=== PATIENT | female | born 1960 | race Caucasian/White ===

== ENCOUNTER 2024-06-19 15:06 | Inpatient (IN) | payer BC ==
[2024-06-19 16:25] LABS: BASOPHILS ABSOLUTE AUTO 0.1 K/mm3 (0.0-0.2); BASOPHILS PERCENT AUTO 0.3 % (0.0-1.0); EOSINOPHILS ABSOLUTE AUTO 0.1 K/mm3 (0.0-0.4); EOSINOPHILS PERCENT AUTO 0.5 % (0.0-6.0); HEMATOCRIT 34.5 % (37.0-47.0); HEMOGLOBIN 10.9 gm/dl (12.0-16.0); IMMATURE GRAN ABSOLUTE AUTO 0.44 K/mm3 (0.00-0.05); IMMATURE GRAN PERCENT AUTO 2.5 % (0.0-0.4); LYMPHOCYTES ABSOLUTE AUTO 1.9 K/mm3 (1.0-4.8); LYMPHOCYTES PERCENT AUTO 10.7 % (24.0-44.0); MEAN CORPUSCULAR HEMOGLOBIN 29.3 pg (28.0-32.0); MEAN CORPUSCULAR HGB CONC 31.6 g/dl (32.0-36.0); MEAN CORPUSCULAR VOLUME 92.7 fl (83.0-99.0); MEAN PLATELET VOLUME 11.1 fl (9.4-12.3); MONOCYTES ABSOLUTE AUTO 0.8 K/mm3 (0.0-0.8); MONOCYTES PERCENT AUTO 4.5 % (0.0-8.0); NEUTROPHILS ABSOLUTE AUTO 14.4 K/mm3 (1.8-7.7); NEUTROPHILS PERCENT AUTO 81.5 % (41.0-71.0); PLATELET COUNT,PLT 375 K/mm3 (150-400); RED BLOOD CELL COUNT 3.72 M/mm3 (4.10-5.30); WHITE BLOOD CELL COUNT,WBC 17.64 K/mm3 (3.9-11.3)
[2024-06-19 17:05] LABS: A/G RATIO 0.3 (1-2); ALBUMIN 2.1 g/dl (3.4-5.0); ANION GAP 10.8 (5-15); BILIRUBIN TOTAL 0.7 mg/dL (0.2-1.0); BUN/CREATININE RATIO 17.5 (14-18); CALCIUM 8.5 mg/dL (8.5-10.1); CREATININE 0.8 mg/dL (0.55-1.02); EST CRCL DRUG DOSING (CG) 61.35 mL/min; POTASSIUM,K 3.8 mEq/L (3.5-5.1); PROTEIN TOTAL,TP 9.5 g/dl (6.4-8.2)
[2024-06-19] MEDS ORDERED: Ondansetron 4 MG Tab.DIS PO PRN (17:49)
[2024-06-19] MEDS: Sodium Chloride 0.9% 10 ML Syringe FLUSH PRN (18:22)
[2024-06-19] MEDS: ceFAZolin 2 GM in Sodium Chloride 0.9% 50 ML IV SCH (18:22)
[2024-06-19] MEDS: Acetaminophen 325 MG Tab PO PRN (18:23)
[2024-06-19] MEDS: Sodium Chloride 0.9% 1,000 ML IV SCH (20:55)
[2024-06-20 06:10] LABS: BASOPHILS PERCENT AUTO 0.1 % (0.0-1.0); EOSINOPHILS ABSOLUTE AUTO 0.2 K/mm3 (0.0-0.4); HEMATOCRIT 27.9 % (37.0-47.0); IMMATURE GRAN ABSOLUTE AUTO 0.28 K/mm3 (0.00-0.05); IMMATURE GRAN PERCENT AUTO 1.9 % (0.0-0.4); LYMPHOCYTES PERCENT AUTO 13.8 % (24.0-44.0); MEAN CORPUSCULAR HEMOGLOBIN 29.5 pg (28.0-32.0); MEAN CORPUSCULAR HGB CONC 31.9 g/dl (32.0-36.0); MEAN CORPUSCULAR VOLUME 92.4 fl (83.0-99.0); MONOCYTES ABSOLUTE AUTO 0.9 K/mm3 (0.0-0.8); MONOCYTES PERCENT AUTO 6.1 % (0.0-8.0); NEUTROPHILS ABSOLUTE AUTO 11.2 K/mm3 (1.8-7.7); NEUTROPHILS PERCENT AUTO 77.1 % (41.0-71.0); RED BLOOD CELL COUNT 3.02 M/mm3 (4.10-5.30); WHITE BLOOD CELL COUNT,WBC 14.52 K/mm3 (3.9-11.3)
[2024-06-20 06:13] LABS: HEMOGLOBIN 8.9 gm/dl (12.0-16.0); PLATELET COUNT,PLT 297 K/mm3 (150-400)
[2024-06-20 06:30] LABS: A/G RATIO 0.3 (1-2); ALBUMIN 1.5 g/dl (3.4-5.0); ANION GAP 10.7 (5-15); BILIRUBIN TOTAL 0.5 mg/dL (0.2-1.0); BUN/CREATININE RATIO 14.3 (14-18); C-REACTIVE PROTEIN 8.72 mg/dL (<0.30); CALCIUM 7.6 mg/dL (8.5-10.1); CREATININE 0.7 mg/dL (0.55-1.02); EST CRCL DRUG DOSING (CG) 70.11 mL/min; POTASSIUM,K 3.7 mEq/L (3.5-5.1); PROTEIN TOTAL,TP 7.5 g/dl (6.4-8.2)
[2024-06-20] MEDS: Enoxaparin 40 MG/0.4 ML Syringe SUBCUT SCH (08:07)
[2024-06-20] MEDS ORDERED: FLU (Flulaval Triv) 24-25(6MOS UP)/PF 45 MCG/0.5 ML Syringe IM ONE (10:00)
[2024-06-20] MEDS: Diltiazem 240 MG Cap.ER PO SCH (12:56)
[2024-06-20] MEDS: Aspirin 81 MG Tab.EC PO SCH (12:56)
[2024-06-20] MEDS: Pravastatin 20 MG Tab PO SCH (21:02)
[2024-06-20] MEDS: Amitriptyline 10 MG Tab PO SCH (21:02)
[2024-06-21 05:38] LABS: BASOPHILS PERCENT AUTO 0.3 % (0.0-1.0); EOSINOPHILS ABSOLUTE AUTO 0.3 K/mm3 (0.0-0.4); HEMATOCRIT 29.3 % (37.0-47.0); HEMOGLOBIN 9.2 gm/dl (12.0-16.0); IMMATURE GRAN PERCENT AUTO 2.2 % (0.0-0.4); LYMPHOCYTES ABSOLUTE AUTO 2.2 K/mm3 (1.0-4.8); LYMPHOCYTES PERCENT AUTO 16.4 % (24.0-44.0); MEAN CORPUSCULAR HEMOGLOBIN 29.4 pg (28.0-32.0); MEAN CORPUSCULAR HGB CONC 31.4 g/dl (32.0-36.0); MEAN CORPUSCULAR VOLUME 93.6 fl (83.0-99.0); MEAN PLATELET VOLUME 11.7 fl (9.4-12.3); MONOCYTES ABSOLUTE AUTO 0.9 K/mm3 (0.0-0.8); MONOCYTES PERCENT AUTO 6.2 % (0.0-8.0); NEUTROPHILS ABSOLUTE AUTO 9.9 K/mm3 (1.8-7.7); NEUTROPHILS PERCENT AUTO 72.9 % (41.0-71.0); PLATELET COUNT,PLT 262 K/mm3 (150-400); RED BLOOD CELL COUNT 3.13 M/mm3 (4.10-5.30); WHITE BLOOD CELL COUNT,WBC 13.62 K/mm3 (3.9-11.3)
[2024-06-21 05:58] LABS: A/G RATIO 0.3 (1-2); ALBUMIN 1.5 g/dl (3.4-5.0); ANION GAP 12.3 (5-15); BILIRUBIN TOTAL 0.3 mg/dL (0.2-1.0); BUN/CREATININE RATIO 8.3 (14-18); C-REACTIVE PROTEIN 6.6 mg/dL (<0.30); CALCIUM 7.4 mg/dL (8.5-10.1); CREATININE 0.6 mg/dL (0.55-1.02); EST CRCL DRUG DOSING (CG) 81.8 mL/min; POTASSIUM,K 3.3 mEq/L (3.5-5.1); PROTEIN TOTAL,TP 7.6 g/dl (6.4-8.2)
[2024-06-21] MEDS: Potassium Chloride 20 MEQ Tab.ER PO ONE (08:36)
[2024-06-21] MEDS: Furosemide 40 MG Tab PO SCH (08:36)
[2024-06-21 14:21] VITALS: BP 143/86; PULSE 97
== END 2024-06-21 14:11 | disposition home or self-care (01) | DRG 383 ==
LOC: JD.ED 15:06 → JD.MS 17:49
PROVIDERS: ADMIT Family Medicine; ATTEND Family Medicine
DX: L03.115 Cellulitis of right lower limb (principal); L03.116 Cellulitis of left lower limb; L97.829 Non-pressure chronic ulcer of other part of left lower leg with unspecified severity; L97.819 Non-pressure chronic ulcer of other part of right lower leg with unspecified severity; D72.829 Elevated white blood cell count, unspecified; I10 Essential (primary) hypertension; E78.00 Pure hypercholesterolemia, unspecified; I73.9 Peripheral vascular disease, unspecified; M81.0 Age-related osteoporosis without current pathological fracture; N81.4 Uterovaginal prolapse, unspecified; R33.9 Retention of urine, unspecified; Z88.0 Allergy status to penicillin; Z79.899 Other long term (current) drug therapy; Z86.718 Personal history of other venous thrombosis and embolism
CPT/HCPCS: 36415; 51798; 80053; 83605; 85025; 86140; 87040; 87641; 99284; A9270-GY; J0690; J1650; J3490; J7030

== ENCOUNTER 2025-08-08 15:31 | Emergency (ER) | payer BC ==
[2025-08-08] MEDS: cefTRIAXone 1 GM, Lidocaine 1% 2.1 ML IM ONE (16:59)
[2025-08-08 17:18] VITALS: BP 127/84; PULSE 94
== END 2025-08-08 17:18 | disposition home or self-care (01) ==
LOC: JD.ED 15:31
DX: L03.115 Cellulitis of right lower limb (principal); I10 Essential (primary) hypertension; E78.00 Pure hypercholesterolemia, unspecified; Z88.0 Allergy status to penicillin; Z79.82 Long term (current) use of aspirin; Z79.899 Other long term (current) drug therapy
CPT/HCPCS: 96372; 99283; J0696; J2003

== ENCOUNTER 2025-08-26 11:56 | Emergency (ER) | payer BC ==
[2025-08-26 13:30] LABS: BASOPHILS ABSOLUTE AUTO 0.0 K/mm3 (0.0-0.2); BASOPHILS PERCENT AUTO 0.3 % (0.0-1.0); EOSINOPHILS ABSOLUTE AUTO 0.0 K/mm3 (0.0-0.4); EOSINOPHILS PERCENT AUTO 0.1 % (0.0-6.0); IMMATURE GRAN ABSOLUTE AUTO 0.06 K/mm3 (0.00-0.05); IMMATURE GRAN PERCENT AUTO 0.5 % (0.0-0.4); LYMPHOCYTES ABSOLUTE AUTO 0.9 K/mm3 (1.0-4.8); LYMPHOCYTES PERCENT AUTO 7.9 % (24.0-44.0); MEAN PLATELET VOLUME 11.9 fl (9.4-12.3); MONOCYTES ABSOLUTE AUTO 0.5 K/mm3 (0.0-0.8); MONOCYTES PERCENT AUTO 4.4 % (0.0-8.0); NEUTROPHILS ABSOLUTE AUTO 10.3 K/mm3 (1.8-7.7); NEUTROPHILS PERCENT AUTO 86.8 % (41.0-71.0); NRBC ABSOLUTE 0.00 (0.00-0.02); NRBC PERCENT 0.0 % (0.0-0.2); RED BLOOD CELL COUNT 4.00 M/mm3 (4.10-5.30); WHITE BLOOD CELL COUNT,WBC 11.83 K/mm3 (3.9-11.3)
[2025-08-26 13:33] LABS: PLATELET COUNT,PLT 165 K/mm3 (150-400)
[2025-08-26 14:05] LABS: A/G RATIO 0.8 (1-2); ALANINE AMINOTRANSFERASE,ALT 18.0 U/L (14-59); ASPARTATE AMNIOTRANSFERASE,AST 11.0 U/L (15-37); BILIRUBIN TOTAL 1.4 mg/dL (0.2-1.0); BLOOD UREA NITROGEN,BUN 20.0 mg/dL (7-18); CARBON DIOXIDE,CO2 29.0 mEq/L (21-32); CHLORIDE,CL 101.0 mEq/L (98-107); CREATININE 0.7 mg/dL (0.55-1.02); EST CRCL DRUG DOSING (CG) 69.19 mL/min; ESTIMATED GFR 96.0 mL/min (>60); GLUCOSE RANDOM 109.0 mg/dL (70-99); POTASSIUM,K 3.7 mEq/L (3.5-5.1); PROTEIN TOTAL,TP 8.5 g/dl (6.4-8.2); SODIUM,NA 139.0 mEq/L (136-145)
[2025-08-26] MEDS: Sodium Chloride 0.9% 10 ML Syringe FLUSH PRN (14:14)
[2025-08-26] MEDS: cefTRIAXone 2 GM in Water For Injection, Sterile 20 ML IVPUSH ONE (14:14)
[2025-08-26 20:58] VITALS: BP 136/77; PULSE 100
== END 2025-08-26 16:40 | disposition home or self-care (01) ==
LOC: JD.ED 11:56
DX: L03.116 Cellulitis of left lower limb (principal); I10 Essential (primary) hypertension; E78.00 Pure hypercholesterolemia, unspecified; Z79.899 Other long term (current) drug therapy; Z79.82 Long term (current) use of aspirin; Z88.0 Allergy status to penicillin
CPT/HCPCS: 36415; 80053; 85025; 86140; 87070; 87205; 96374; 99283; A4216; J0696